=== PATIENT | male | born 1930 | race African-American/Black ===

== ENCOUNTER 2017-10-29 14:59 | Emergency (ER) | payer MEDICARE ==
[~2017-10-29] VITALS: Ht 170.2 cm; Wt 67.0 kg
[~2017-10-29 14:59] MED LIST: ALFU10TA9 PO; BIMA2.5D4 LEFTEYE; BRIM5DRO EACHEYE; DONE10TA36 PO; DORZ10DR8 BOTHEYE; ERGO2000 PO; LEVE500T19 PO; LISI40TA4 PO; MEMA28CA PO
[2017-10-29 16:18] LABS: CLARITY URINE TURBID (CLEAR); COLOR URINE RED (YELLOW); KETONES URINE 1+ (NEGATIVE); LEUKOCYTE ESTERASE URINE 3+ (NEGATIVE); NITRITE URINE POSITIVE (NEGATIVE); OCCULT BLOOD URINE 3+ (NEGATIVE); PROTEIN URINE 4+ (NEGATIVE); SPECIFIC GRAVITY URINE 1.023 (1.005-1.030)
[2017-10-29] MEDS ORDERED: CEFTRIAXONE 1 G PREMIX 50 ML IV ONE (17:45)
[2017-10-29 18:04] VITALS: BP 139/84
== END 2017-10-29 19:26 | disposition home or self-care (01) ==
LOC: EDBD 16:00 → ER 16:00
DX: N39.0 Urinary tract infection, site not specified (principal); R31.0 Gross hematuria; Z46.6 Encounter for fitting and adjustment of urinary device; I10 Essential (primary) hypertension; F03.90 Unspecified dementia, unspecified severity, without behavioral disturbance, psychotic disturbance, mood disturbance, and anxiety; Z79.899 Other long term (current) drug therapy; Z98.890 Other specified postprocedural states
CPT/HCPCS: 51702; 81003; 87086; 96365; 99284; J0696; A4315

== ENCOUNTER 2018-04-15 09:23 | Inpatient (IN) | payer MEDICARE ==
[~2018-04-15] VITALS: Ht 160 cm; Wt 73.9 kg
[2018-04-15] VITALS (19 sets, daily range): BP systolic 92–127; BP diastolic 39–74
[2018-04-15] MEDS ORDERED: PIPERACILLIN/TAZ 3.375G PREMIX 50 ML IV ONE (09:30)
[2018-04-15] MEDS ORDERED: VANCOMYCIN 1 G PREMIX 200 ML IV ONE (09:30)
[2018-04-15] MEDS ORDERED: ACETAMINOPHEN 650MG SUPP ONE (09:40)
[2018-04-15] MEDS ORDERED: ACETAMINOPHEN 650MG SUPP PR ONE (09:45)
[2018-04-15] MEDS ORDERED: SODIUM CHLORIDE 0.9% 1000ML BAG (SEPSIS BOLUS) IV ONE (09:45)
[2018-04-15 09:48] LABS: BG BASE EXCESS -4.4 mmol/L (-2.0-2.0); BG CARBOXYHEMOGLOBIN 1.9 % (0.5-1.5); BG FRACTION INSPIRED OXYGEN 28; BG HCO3 ACT 17.7 mmol/L (22.0-26.0); BG METHEMOGLOBIN 0.1 % (0.0-1.5); BG PCO2 20.9 mmHg (35.0-45.0); BG PH 7.546 (7.350-7.450); BG SAMPLE SITE LEFT RADIAL; BG TOTAL HEMOGLOBIN 5.7 g/dL (12.0-18.0); BG VENT MODE NASAL CANNULA
[2018-04-15] MEDS ORDERED: LIDOCAINE HCL 1% 20ML VIAL (Pyxis) INJ ONE (10:20)
[2018-04-15 10:34] LABS: MEAN CORPUSCULAR HEMOGLOBIN 24.7 pg (28.0-32.0); MEAN CORPUSCULAR VOLUME 85.1 fL (80.0-94.0); MEAN PLATELET VOLUME 7.5 fl (7.4-10.4); PLATELET 283 x1000/uL (130-400); RED BLOOD CELL COUNT 1.93 mill/uL (4.7-6.1); RED CELL DISTRIBUTION WIDTH 18.4 % (11.6-14.6)
[2018-04-15 10:39] LABS: HEMATOCRIT. 16.4 % (42.0-52.0); HEMOGLOBIN. 4.8 g/dL (14.0-18.0)
[2018-04-15 10:40] LABS: INR 1.2; PROTHROMBIN TIME 12.1 sec (9.1-11.1)
[2018-04-15 10:41] LABS: CHLORIDE 125 mEq/L (98-107)
[2018-04-15 11:14] LABS: PLATELET ESTIMATE NORMAL
[2018-04-15 11:15] LABS: CLARITY URINE TURBID (CLEAR); COLOR URINE DARK YELLOW (YELLOW); KETONES URINE NEGATIVE (NEGATIVE); OCCULT BLOOD URINE 2+ (NEGATIVE); PROTEIN URINE TRACE (NEGATIVE); SPECIFIC GRAVITY URINE 1.017 (1.005-1.030)
[2018-04-15 11:16] LABS: LEUKOCYTE ESTERASE URINE 3+ (NEGATIVE); NITRITE URINE NEGATIVE (NEGATIVE)
[2018-04-15] MEDS ORDERED: SODIUM CHLORIDE 0.9% 1,000 ML IV ONE ×2 (11:47→13:39)
[2018-04-15] MEDS ORDERED: NOREPINEPHRINE 4 MG in DEXT 5% WATER 250 ML IV STA (11:47)
[2018-04-15] MEDS ORDERED: NOREPINEPHRINE 4 MG in DEXT 5% WATER 246 ML IV STA (12:50)
[2018-04-15] MEDS ORDERED: PIPERACILLIN/TAZ 3.375G PREMIX 50 ML IV SCH (15:45)
[2018-04-15] MEDS ORDERED: ONDANSETRON HCL 4MG/2ML INJ IV PRN (15:45)
[2018-04-15] MEDS ORDERED: LORAZEPAM 2MG/ML CPJ IV PRN (15:45)
[2018-04-15] MEDS ORDERED: HYDROMORPHONE HCL/PF 2MG/ML CPJ IV PRN (15:45)
[2018-04-15] MEDS ORDERED: ACETAMINOPHEN 650MG SUPP PR PRN (15:45)
[2018-04-15] MEDS ORDERED: NOREPINEPHRINE 16 MG in DEXT 5% WATER 234 ML IV NR ×4 (16:00)
[2018-04-15] MEDS ORDERED: KCL 10MEQ/50ML PREMIX 50 ML IV NR (16:01)
[2018-04-15] MEDS: DEXTROSE 5% WATER 1,000 ML IV SCH (17:00)
[2018-04-15] MEDS: PANTOPRAZOLE SODIUM 40 MG/VIAL IV SCH (19:33)
[2018-04-15] MEDS: PIPERACILLIN/TAZ 2.25G PREMIX 50 ML IV SCH (19:33)
[2018-04-15] MEDS ORDERED: LEVETIRACETAM 500MG TABLET PO SCH (21:00)
[2018-04-15] MEDS ORDERED: LEVETIRACETAM 500 MG in SODIUM CHLORIDE 0.9% 100 ML IV SCH (22:00)
[2018-04-15] MEDS ORDERED: PNEUMOCOCCAL 23-VAL P-SAC VAC 0.5 ML IM ONE (23:30)
[2018-04-15] MEDS ORDERED: INFLUENZA VIRUS VACCINE(AFLURIA) 0.5ML SYR IM ONE (23:30)
[2018-04-16] VITALS (94 sets, daily range): BP systolic 89–138; BP diastolic 42–83
[2018-04-16] MEDS: PIPERACILLIN/TAZ 2.25G PREMIX 50 ML IV SCH ×3 (01:30→17:51)
[2018-04-16 05:52] LABS: HEMATOCRIT. 32.3 % (42.0-52.0); HEMOGLOBIN. 10.3 g/dL (14.0-18.0); MEAN PLATELET VOLUME 7.6 fl (7.4-10.4); PLATELET 299 x1000/uL (130-400); RED BLOOD CELL COUNT 3.67 mill/uL (4.7-6.1); RED CELL DISTRIBUTION WIDTH 16.6 % (11.6-14.6)
[2018-04-16] MEDS: DEXTROSE 5% WATER 1,000 ML IV SCH ×2 (05:54→09:28)
[2018-04-16 05:57] LABS: CHLORIDE 121 mEq/L (98-107)
[2018-04-16] MEDS: LEVETIRACETAM 500 MG in SODIUM CHLORIDE 0.9% 100 ML IV SCH ×2 (09:22→21:20)
[2018-04-16] MEDS: PANTOPRAZOLE SODIUM 40 MG/VIAL IV SCH (09:22)
[2018-04-16 10:14] LABS: PLATELET ESTIMATE NORMAL
[2018-04-16] MEDS: VANCOMYCIN 750 MG PREMIX 150 ML IV SCH (11:35)
[2018-04-16] MEDS ORDERED: SODIUM HYPOCHLORITE 0.125% 473ML SOLUTION TOP SCH (12:00)
[2018-04-16] MEDS ORDERED: POTASSIUM CHLORIDE INJ 40 MEQ in DEXT 5% WATER 250 ML IV NR (14:00)
[2018-04-16] MEDS: MIDODRINE HCL 2.5MG TABLET PO SCH (17:52)
[2018-04-16] MEDS: SODIUM HYPOCHLORITE 0.125% 473ML SOLUTION TOP SCH (21:19)
[2018-04-16] MEDS ORDERED: MEROPENEM 500 MG in SODIUM CHLORIDE 0.9% 50 ML IV SCH (23:45)
[2018-04-17] VITALS (86 sets, daily range): BP systolic 80–149; BP diastolic 34–88
[2018-04-17] MEDS ORDERED: AMIKACIN SULFATE IV NR (03:00)
[2018-04-17] MEDS ORDERED: SODIUM CHLORIDE 0.9% IV NR (03:00)
[2018-04-17] MEDS: MEROPENEM 500 MG in SODIUM CHLORIDE 0.9% 50 ML IV SCH ×2 (03:00→14:21)
[2018-04-17 05:30] LABS: CHLORIDE 117 mEq/L (98-107); HEMATOCRIT. 34.5 % (42.0-52.0); MEAN CORPUSCULAR HEMOGLOBIN 27.8 pg (28.0-32.0); MEAN CORPUSCULAR VOLUME 87.4 fL (80.0-94.0); MEAN PLATELET VOLUME 7.9 fl (7.4-10.4); PLATELET 230 x1000/uL (130-400); RED BLOOD CELL COUNT 3.94 mill/uL (4.7-6.1); RED CELL DISTRIBUTION WIDTH 17.2 % (11.6-14.6)
[2018-04-17] MEDS: PHENYLEPHRINE 20 MG in DEXT 5% WATER 498 ML IV PRN ×2 (05:33→11:53)
[2018-04-17] MEDS: DEXTROSE 5% WATER 1,000 ML IV SCH ×2 (08:00→21:03)
[2018-04-17] MEDS: MIDODRINE HCL 2.5MG TABLET PO SCH ×2 (09:43→12:29)
[2018-04-17] MEDS: LEVETIRACETAM 500 MG in SODIUM CHLORIDE 0.9% 100 ML IV SCH ×2 (09:44→21:03)
[2018-04-17] MEDS: PANTOPRAZOLE SODIUM 40 MG/VIAL IV SCH (09:44)
[2018-04-17] MEDS: VANCOMYCIN 750 MG PREMIX 150 ML IV SCH (09:44)
[2018-04-17] MEDS: SODIUM HYPOCHLORITE 0.125% 473ML SOLUTION TOP SCH (09:46)
[2018-04-17 09:52] LABS: PLATELET ESTIMATE NORMAL
[2018-04-17] MEDS ORDERED: DEXTROSE 50% WATER 50ML SYRINGE IV PRN (13:15)
[2018-04-17] MEDS: MIDODRINE HCL 5MG TABLET PO SCH ×2 (14:21→22:38)
[2018-04-17] MEDS: INSULIN LISPRO 100 UNITS/ML SUBCUT SCH ×2 (14:31→18:00)
[2018-04-18] VITALS (75 sets, daily range): BP systolic 72–149; BP diastolic 36–75
[2018-04-18] MEDS: INSULIN LISPRO 100 UNITS/ML SUBCUT SCH ×4 (01:15→18:26)
[2018-04-18] MEDS: MEROPENEM 500 MG in SODIUM CHLORIDE 0.9% 50 ML IV SCH (02:00)
[2018-04-18] MEDS: PHENYLEPHRINE 20 MG in DEXT 5% WATER 498 ML IV PRN ×2 (03:10→07:08)
[2018-04-18] MEDS ORDERED: AMIKACIN SULFATE 500 MG in SODIUM CHLORIDE 0.9% 100 ML IV SCH (04:00)
[2018-04-18] MEDS: MIDODRINE HCL 5MG TABLET PO SCH ×3 (06:45→22:18)
[2018-04-18 07:15] LABS: HEMATOCRIT. 33.9 % (42.0-52.0); HEMOGLOBIN. 10.8 g/dL (14.0-18.0); MEAN CORPUSCULAR HEMOGLOBIN 27.9 pg (28.0-32.0); MEAN CORPUSCULAR VOLUME 87.5 fL (80.0-94.0); MEAN PLATELET VOLUME 8.2 fl (7.4-10.4); PLATELET 194 x1000/uL (130-400); RED BLOOD CELL COUNT 3.88 mill/uL (4.7-6.1); RED CELL DISTRIBUTION WIDTH 17.6 % (11.6-14.6)
[2018-04-18 08:28] LABS: PLATELET ESTIMATE NORMAL
[2018-04-18] MEDS: SODIUM HYPOCHLORITE 0.125% 473ML SOLUTION TOP SCH ×2 (09:00→17:00)
[2018-04-18] MEDS: VANCOMYCIN 750 MG PREMIX 150 ML IV SCH (09:13)
[2018-04-18] MEDS: LEVETIRACETAM 500 MG in SODIUM CHLORIDE 0.9% 100 ML IV SCH ×2 (09:13→22:13)
[2018-04-18] MEDS: PANTOPRAZOLE SODIUM 40 MG/VIAL IV SCH (09:13)
[2018-04-18] MEDS: BLOOD SUGAR DIAGNOSTIC STRIP TEST SCH ×3 (12:55→21:00)
[2018-04-18] MEDS ORDERED: CEFTRIAXONE 1,000 MG in DEXTROSE 5% WATER 50 ML IV SCH (14:00)
[2018-04-18] MEDS: CEFTRIAXONE 1 G PREMIX 50 ML IV SCH (17:17)
[2018-04-18] MEDS: DEXTROSE 5% WATER 1,000 ML IV SCH (21:00)
[2018-04-19] VITALS (68 sets, daily range): BP systolic 89–151; BP diastolic 26–91
[2018-04-19] MEDS: DEXTROSE 5% WATER 1,000 ML IV SCH
[2018-04-19] MEDS: PHENYLEPHRINE 20 MG in DEXT 5% WATER 498 ML IV PRN ×2 (00:26→18:30)
[2018-04-19] MEDS: INSULIN LISPRO 100 UNITS/ML SUBCUT SCH ×5 (01:15→18:29)
[2018-04-19] MEDS: BLOOD SUGAR DIAGNOSTIC STRIP TEST SCH ×3 (06:41→18:29)
[2018-04-19] MEDS: MIDODRINE HCL 5MG TABLET PO SCH ×3 (06:54→21:36)
[2018-04-19] MEDS: PANTOPRAZOLE SODIUM 40 MG/VIAL IV SCH (09:23)
[2018-04-19] MEDS: SODIUM HYPOCHLORITE 0.125% 473ML SOLUTION TOP SCH ×2 (09:24→16:29)
[2018-04-19] MEDS: LEVETIRACETAM 500 MG in SODIUM CHLORIDE 0.9% 100 ML IV SCH ×2 (09:24→21:35)
[2018-04-19] MEDS ORDERED: PROPOFOL 10MG/ML 100ML 100 ML IV PRN (10:00)
[2018-04-19] MEDS ORDERED: VANCOMYCIN 1 G PREMIX 200 ML IV SCH (12:00)
[2018-04-19] MEDS: VANCOMYCIN 750 MG PREMIX 150 ML IV SCH (12:49)
[2018-04-19] MEDS ORDERED: DEXTROSE 5% WATER 1,000 ML IV SCH (14:00)
[2018-04-19] MEDS: CEFTRIAXONE 1 G PREMIX 50 ML IV SCH (16:28)
[2018-04-19 21:10] LABS: CHLORIDE 107 mEq/L (98-107)
[2018-04-19] MEDS ORDERED: POTASSIUM CHLORIDE INJ 40 MEQ in DEXT 5% WATER 250 ML IV NR (23:00)
[2018-04-19] MEDS: SODIUM CHLORIDE 0.9% 1,000 ML IV SCH (23:25)
[2018-04-20] VITALS (74 sets, daily range): BP systolic 85–216; BP diastolic 44–127
[2018-04-20] MEDS: INSULIN LISPRO 100 UNITS/ML SUBCUT SCH ×5 (00:05→23:19)
[2018-04-20] MEDS: MIDODRINE HCL 5MG TABLET PO SCH ×3 (05:39→23:17)
[2018-04-20] MEDS ORDERED: INSULIN LISPRO 100 UNITS/ML SUBCUT SCH (07:00)
[2018-04-20] MEDS: SODIUM HYPOCHLORITE 0.125% 473ML SOLUTION TOP SCH ×2 (09:00→17:00)
[2018-04-20] MEDS: PANTOPRAZOLE SODIUM 40 MG/VIAL IV SCH (09:35)
[2018-04-20] MEDS: LEVETIRACETAM 500 MG in SODIUM CHLORIDE 0.9% 100 ML IV SCH ×2 (09:35→20:27)
[2018-04-20] MEDS: SODIUM CHLORIDE 0.9% 1,000 ML IV SCH (09:40)
[2018-04-20] MEDS: BLOOD SUGAR DIAGNOSTIC STRIP TEST SCH ×2 (12:00→18:00)
[2018-04-20] MEDS: VANCOMYCIN 750 MG PREMIX 150 ML IV SCH (13:46)
[2018-04-20] MEDS ORDERED: POTASSIUM CHLORIDE 20MEQ TABLET SR PO NR (17:15)
[2018-04-20] MEDS: CEFTRIAXONE 1 G PREMIX 50 ML IV SCH (17:58)
[2018-04-20] MEDS ORDERED: KETOROLAC 30MG/ML VIAL IV PRN (20:45)
[2018-04-21] VITALS (33 sets, daily range): BP systolic 88–124; BP diastolic 46–72
[2018-04-21] MEDS: SODIUM CHLORIDE 0.9% 1,000 ML IV SCH ×3 (03:51→21:00)
[2018-04-21] MEDS: PHENYLEPHRINE 20 MG in DEXT 5% WATER 498 ML IV PRN (05:35)
[2018-04-21] MEDS: MIDODRINE HCL 5MG TABLET PO SCH ×3 (05:36→20:59)
[2018-04-21] MEDS: INSULIN LISPRO 100 UNITS/ML SUBCUT SCH ×3 (06:00→17:26)
[2018-04-21] MEDS: LEVETIRACETAM 500 MG in SODIUM CHLORIDE 0.9% 100 ML IV SCH ×2 (08:27→20:58)
[2018-04-21] MEDS: PANTOPRAZOLE SODIUM 40 MG/VIAL IV SCH (08:27)
[2018-04-21] MEDS: SODIUM HYPOCHLORITE 0.125% 473ML SOLUTION TOP SCH ×2 (08:29→16:24)
[2018-04-21] MEDS: METRONIDAZOLE 500 MG PREMIX 100 ML IV SCH ×2 (10:56→17:41)
[2018-04-21] MEDS: BLOOD SUGAR DIAGNOSTIC STRIP TEST SCH ×2 (11:00→17:04)
[2018-04-21] MEDS: VANCOMYCIN 750 MG PREMIX 150 ML IV SCH (13:16)
[2018-04-21] MEDS: CEFTRIAXONE 1 G PREMIX 50 ML IV SCH (16:26)
[2018-04-21 17:11] LABS: BASOPHILS % 0.2 % (0.0-2.0); HEMATOCRIT. 31.7 % (42.0-52.0); HEMOGLOBIN. 9.9 g/dL (14.0-18.0); MEAN CORPUSCULAR HEMOGLOBIN 27.3 pg (28.0-32.0); MEAN CORPUSCULAR VOLUME 87.9 fL (80.0-94.0); MEAN PLATELET VOLUME 8.6 fl (7.4-10.4); MONOCYTES % 2.8 % (2.0-8.0); PLATELET 168 x1000/uL (130-400); RED BLOOD CELL COUNT 3.61 mill/uL (4.7-6.1); RED CELL DISTRIBUTION WIDTH 18.3 % (11.6-14.6)
[2018-04-21 17:18] LABS: CHLORIDE 112 mEq/L (98-107)
[2018-04-21] MEDS ORDERED: POTASSIUM CHLORIDE 20MEQ/PACKET PO NR (17:30)
[2018-04-22] VITALS (17 sets, daily range): BP systolic 93–146; BP diastolic 48–70
[2018-04-22] MEDS: BLOOD SUGAR DIAGNOSTIC STRIP TEST SCH ×3 (00:13→11:11)
[2018-04-22] MEDS: METRONIDAZOLE 500 MG PREMIX 100 ML IV SCH ×2 (02:36→10:04)
[2018-04-22] MEDS: INSULIN LISPRO 100 UNITS/ML SUBCUT SCH ×3 (06:00→11:23)
[2018-04-22] MEDS: MIDODRINE HCL 5MG TABLET PO SCH ×2 (06:09→14:22)
[2018-04-22] MEDS: SODIUM HYPOCHLORITE 0.125% 473ML SOLUTION TOP SCH (08:30)
[2018-04-22] MEDS: LEVETIRACETAM 500 MG in SODIUM CHLORIDE 0.9% 100 ML IV SCH (08:47)
[2018-04-22] MEDS: PANTOPRAZOLE SODIUM 40 MG/VIAL IV SCH (08:47)
[2018-04-22] MEDS: VANCOMYCIN 750 MG PREMIX 150 ML IV SCH (12:08)
[2018-04-22 16:03] LABS: CHLORIDE 115 mEq/L (98-107)
== END 2018-04-22 17:27 | disposition short-term general hospital (02) | DRG 871 ==
LOC: ER 09:23 → MICUSO 12:00 → EDBEDREQSVC 12:01 → EDBEDREQ 12:01 → ENRESERV 13:42 → SUPCPDRO 15:30
PROVIDERS: ADMIT Hospitalist; ATTEND Hospitalist
PROC: 02HV33Z Insertion of Infusion Device into Superior Vena Cava, Percutaneous Approach (ICD-10-PCS; principal; 2018-04-15)
PROC: B548ZZA Ultrasonography of Superior Vena Cava, Guidance (ICD-10-PCS; 2018-04-15)
PROC: 30233N1 Transfusion of Nonautologous Red Blood Cells into Peripheral Vein, Percutaneous Approach (ICD-10-PCS; 2018-04-15)
DX: A41.51 Sepsis due to Escherichia coli [E. coli] (principal); L89.224 Pressure ulcer of left hip, stage 4; L89.214 Pressure ulcer of right hip, stage 4; L89.154 Pressure ulcer of sacral region, stage 4; E43 Unspecified severe protein-calorie malnutrition; G92 Toxic encephalopathy; J96.00 Acute respiratory failure, unspecified whether with hypoxia or hypercapnia; R65.21 Severe sepsis with septic shock; I63.40 Cerebral infarction due to embolism of unspecified cerebral artery; N39.0 Urinary tract infection, site not specified; E87.0 Hyperosmolality and hypernatremia; N17.9 Acute kidney failure, unspecified; E87.4 Mixed disorder of acid-base balance; R47.01 Aphasia; Z66 Do not resuscitate; B95.1 Streptococcus, group B, as the cause of diseases classified elsewhere; L89.890 Pressure ulcer of other site, unstageable; I10 Essential (primary) hypertension; F03.90 Unspecified dementia, unspecified severity, without behavioral disturbance, psychotic disturbance, mood disturbance, and anxiety; E86.0 Dehydration; D64.9 Anemia, unspecified; E87.6 Hypokalemia; G40.909 Epilepsy, unspecified, not intractable, without status epilepticus; H40.9 Unspecified glaucoma; R13.10 Dysphagia, unspecified; Z74.01 Bed confinement status; Z68.28 Body mass index [BMI] 28.0-28.9, adult
CPT/HCPCS: 36415; 36430; 36569; 36600; 70551; 71045; 76770; 76937; 80048; 80051; 80202; 82375; 82805; 82962; 83605; 83735; 84134; 84145; 84478; 84484; 86850; 86900; 86920; 87070; 87075; 87076; 87077; 87186; 93005; 93970; 96365; 96375; 99291; C1725; C9113; J0278; J0696; J1170; J1815; J1885; J1953; J2185; J2370; J2543; J3370; J3480; J3490; J7030; J7040; J7042; J7050; J7060; J7070; P9016